=== PATIENT | female | born 1995 | race Caucasian/White ===

== ENCOUNTER 2016-09-30 12:33 | Emergency (ER) | payer OTHER ==
[~2016-09-30] VITALS: Ht 162.6 cm; Wt 67.6 kg
--- NOTE | 2016-09-30 13:38 | ED GENERAL ADULT ---
History of Present Illness General Chief Complaint: General Adult Stated Complaint: MOCK/RIB PAIN Source: patient, family Exam Limitations: no limitations Vital Signs & Intake/Output Vital Signs & Intake/Output Vital Signs Date Time Temp Pulse Resp B/P Pulse O2 O2 Flow FiO2 Ox Delivery Rate 09/30 1510 98.7 78 18 112/57 95 09/30 1240 98.4 86 18 102/73 99 Room Air Allergies Uncoded Allergies: PCN (Intermediate, RASH 09/30/16) Reconcile Medications Ketorolac Tromethamine 10 MG TABLET 1 TAB PO TID PRN PAIN Triage Note: PT STATES SHE HAD A VIRUS 2 WEEKS, AGO WITH COUGH. C/O R RIB PAIN, WORSE ON INPSPIRATION. ALSO C/O "AURAS" WITH NEAR SYNCOPE X 3 WEEKS. Triage Nurses Notes Reviewed? yes Onset: Gradual Duration: constant Timing: recent history Severity: severe Severity Numbers: 7 : No Patient currently breastfeeds: No HPI: Patient is a 21-year-old female with a past medical history of anxiety currently on Lexapro who presents to the emergency room with 2 complaints. Patient states that for the past month she has had intermittent "aura like experiences that last for approximately 1 minute paroxysmal nature and patient states that she does not have any post experience such as seizures or migraines after this aura occurs. Patient was evaluated by primary care doctor and is currently trying to establish a neurology referral for her symptoms. Last aura experience was yesterday. None today. Patient also complains of a 2 week history AGO of upper respiration infection where patient had nonproductive coughing which has resolved however patient had a gradual onset of a 5 day history of right lateral rib pain and chest wall pain that's made worse with deep inhalation and palpation. Patient denies any mechanism of injury. Currently denies any fever, chills, chest pain shortness of breath cough hemoptysis abdominal pain back pain rash sore throat. Patient denies any history of pulmonary embolism or DVT, denies any oral contraceptive use denies any recent travel recent surgery or hemoptysis. (BONG BECERRA,KARLY) Past History Travel History Traveled to [place] past 21 day No Medical History Any Pertinent Medical History? see below for history Neurological: NONE EENT: NONE Cardiovascular: NONE Respiratory: asthma Gastrointestinal: NONE Hepatic: NONE Renal: NONE Musculoskeletal: NONE Psychiatric: NONE Endocrine: NONE Surgical History Surgical History: non-contributory Psychosocial History What is your primary language Greek Tobacco Use: Never used ETOH Use: denies use Family History Hx Contributory? No (KARLY ARAUJO) Review of Systems Review of Systems Constitutional: Reports: see HPI. Denies: chills, fever, malaise. EENTM: Reports: no symptoms. Respiratory: Reports: see HPI. Denies: cough, short of breath. Cardiovascular: Reports: see HPI. GI: Reports: no symptoms. Genitourinary: Reports: no symptoms. Musculoskeletal: Reports: no symptoms. Skin: Reports: no symptoms. Neurological/Psychological: Reports: no symptoms. Hematologic/Endocrine: Reports: no symptoms. Immunologic/Allergic: Reports: no symptoms. All Other Systems: Reviewed and Negative (KARLY ARAUJO) Physical Exam Physical Exam General Appearance: no apparent distress, alert Comments: Well-developed well-nourished person in no acute distress HEENT: Normal EENT exam Neck: Supple, no lymphadenopathy, normal range of motion without pain or tenderness Back: Nontender, no CVA tenderness. Cardiovascular: Regular rate and rhythms no murmurs rubs or gallops, normal JVP Respiratory: . No respiratory distress.breath sounds clear to auscultation bilaterally Abdomen: Soft, nontender nondistended, no appreciable organomegaly. Normal bowel sounds. No ascites Extremity: No edema, no calf tenderness to palpation, normal and equal pulses. Neuro: Alert oriented x3, motor sensory normal, Skin: No appreciable rash on exposed skin, skin is warm and dry. Psych: Mood and affect is normal, memory and judgment is normal. Core Measures ACS in differential dx? No CVA/TIA Diagnosis: No Severe Sepsis Present: No Septic Shock Present: No Diagram Body: 1) Normal inspection right lateral rib point tenderness noted skin intact no step-off deformity no rash (KARLY ARAUJO) Progress Differential Diagnoses I considered the following diagnoses in my evaluation of the patient: [ Costochondritis, rib fracture, rib contusion, PE, pneumothorax,] Plan of Care: Orders Procedure Date/time Status URINE 09/30 1243 Complete Laboratory Tests 09/30/16 1305: Urine Test NEGATIVE Patient currently is in no apparent distress no respiratory distress clear lungs auscultation x-rays were unremarkable for osseous injury. PERC WAS ZERO essentially ruling out pulmonary embolism As patient looks well no apparent distress 99% oxygen saturation room air and will be treated for concerns of costochondritis. Patient denies any mechanism of injury (KARLY ARAUJO) Diagnostic Imaging: Viewed by Me: Radiology Read. Radiology Impression: no acute abnormality Initial ED EKG: none Comments: PATIENT: LIEN GRIJALVA PRESENT AGE: 21 PATIENT ACCOUNT NO: [id number] : 93 LOCATION: [facility] ORDERING PHYSICIAN: KARLY BECERRA SERVICE DATE: 09/30/16 EXAM TYPE: RAD - XRY-CHEST XRAY, PA AND LATERAL; XRY-RIBS UNILATERAL-RIGHT EXAMINATION: XR RIBS, RIGHT, 2 view chest CLINICAL INFORMATION: Lateral rib pain COMPARISON: None TECHNIQUE: 2 views of the chest and 3 detailed views of the right ribs FINDINGS: Chest film Demonstrates lung wilhelm to be grossly clear. No effusion. No infiltrate. The heart size is normal. Hilar structures do not appear enlarged. No effusion. 3 detailed views of the right ribs do not demonstrate evidence for fracture. No lesion is seen. IMPRESSION: Negative study. No fracture visualized. No pneumothorax or effusion. Lung wilhelm are clear. (KARLY ARAUJO) Departure Departure Disposition: HOME OR SELF CARE Condition: Stable Clinical Impression Primary Impression: Rib pain on right side Secondary Impressions: Costochondritis Referrals: CLAIR FRAIRE,KD Macias (PCP/Family) Additional Instructions: As discussed begin icing the area directly 20 minutes every 2 hours. Begin the prescription and ketorolac for pain and inflammation. If symptoms worsen return to emergency room. If no better on Thursday follow-up with her primary care doctor. prescription is waiting at [facility] pharmacy Departure Forms: Customer Survey General Discharge Information Prescriptions: Current Visit Scripts Ketorolac Tromethamine 1 TAB PO TID PRN PAIN #15 TAB (KARLY ARAUJO) PA/IMPLANT COORDINATOR Co-Sign Statement Statement: ED Attending supervision documentation- [] I saw and evaluated the patient. I have also reviewed all the pertinent lab results and diagnostic results. I agree with the findings and the plan of care as documented in the PA's/IMPLANT COORDINATOR's documentation. x I have reviewed the ED Record and agree with the PA's/IMPLANT COORDINATOR's documentation. [] Additions or exceptions (if any) to the PAs/IMPLANT COORDINATOR's note and plan are summarized below: [] (FRED FRAIRE,WES) Critical Care Note Critical Care Note Critical Care Time: non-applicable (BONG BECERRA,KARLY)
--- NOTE | 2016-09-30 14:37 | RADIOLOGY REPORT ---
EXAMINATION: XR RIBS, RIGHT, 2 view chest CLINICAL INFORMATION: Lateral rib pain COMPARISON: None TECHNIQUE: 2 views of the chest and 3 detailed views of the right ribs FINDINGS: Chest film Demonstrates lung wilhelm to be grossly clear. No effusion. No infiltrate. The heart size is normal. Hilar structures do not appear enlarged. No effusion. 3 detailed views of the right ribs do not demonstrate evidence for fracture. No lesion is seen. IMPRESSION: Negative study. No fracture visualized. No pneumothorax or effusion. Lung wilhelm are clear.
[2016-09-30] MEDS ORDERED: KETOROLAC TROME10 M1 PO (14:58)
[2016-09-30 15:10] VITALS: BP 112/57
== END 2016-09-30 15:22 ==
LOC: ERH 12:33
DX: R07.81 Pleurodynia (principal); M94.0 Chondrocostal junction syndrome [Tietze]
CPT/HCPCS: 71100-RT; 81025; 96372; J1885